=== PATIENT | male | born 1970 | race Caucasian/White ===

== ENCOUNTER 2020-02-26 13:04 | Emergency (ER) | payer BC ==
[~2020-02-26] VITALS: Ht 177.8 cm; Wt 90.7 kg
[2020-02-26 13:15] VITALS: Ht 177.8 cm; Wt 90.7 kg
[2020-02-26 14:19] LABS: PLATELET COUNT 256 x10^3mcL (130-400); RED CELL DISTRIBUTION WIDTH 13.8 % (11.5-14.5)
[2020-02-26 14:43] LABS: BASOPHIL % 0 % (0-2)
[2020-02-26 14:59] LABS: CALCIUM 9.4 mg/dL (8.5-10.1); CARBON DIOXIDE 25.8 mmol/L (21-32); CHLORIDE SERUM 104 mmol/L (98-107); GFR1 > 60 mL/min; GLUCOSE SERUM 128 mg/dL (74-106); POTASSIUM SERUM 3.8 mmol/L (3.5-5.1); SODIUM SERUM 142 mmol/L (136-145)
[2020-02-26 15:04] LABS: ALKALINE PHOSPHATASE 77 U/L (46-116); ALT/SGPT 74 U/L (16-63); AST/SGOT 34 U/L (15-37); BILIRUBIN TOTAL 0.55 mg/dL (0.20-1.00); LIPASE 126 IU/L (73-393); TOTAL PROTEIN, SERUM 7.8 g/dL (6.4-8.2)
[2020-02-26 16:12] VITALS: BP 138/65
== END 2020-02-26 16:00 | disposition home or self-care (01) ==
LOC: ED 13:04
PROVIDERS: Emergency Medicine
DX: N20.0 Calculus of kidney (principal)
CPT/HCPCS: J1885; J2270; J2405; J7030